=== PATIENT | female | born 1995 | race Caucasian/White ===

== ENCOUNTER 2019-05-23 06:05 | Day surgery (SDC) | payer OTHER ==
[~2019-05-23] VITALS: Ht 154.9 cm; Wt 54.0 kg
[2019-05-23 06:26] VITALS: BP 112/72
[2019-05-23 10:50] VITALS: BP 113/74
== END 2019-05-23 10:35 | disposition home or self-care (01) ==
LOC: DS 06:05 → OR 07:30 → DS 07:30
DX: N75.1 Abscess of Bartholin's gland (principal); N75.0 Cyst of Bartholin's gland; Z88.0 Allergy status to penicillin
CPT/HCPCS: J2175; J2250; J2405; J2704; J3010; J3490; J7120